=== PATIENT | female | born 1970 | race Caucasian/White ===

== ENCOUNTER 2020-09-23 04:26 | Day surgery (SDC) | payer OTHER ==
[2020-09-19 17:07] VITALS: BMI 31.7
[2020-09-23] MEDS ORDERED: ONDANSETRON 4 MG/2 ML VIAL IVPUSH PRN ×2 (07:03→07:47)
[2020-09-23] MEDS ORDERED: oxyCODONE HCL 5 MG TABLET PO PRN ×2 (07:03→07:47)
[2020-09-23] MEDS ORDERED: LACTATED RINGERS SOLUTION 1,000 ML IV SCH (07:15)
[2020-09-23] MEDS ORDERED: fentaNYL CITRATE 250 MCG/5 ML VIAL ONE (07:15)
[2020-09-23] MEDS ORDERED: MIDAZOLAM HCL 2 MG/2 ML SINGLE DOSE VIAL ONE (07:16)
[2020-09-23] MEDS ORDERED: PROPOFOL 20 ML ONE (07:16)
[2020-09-23] MEDS ORDERED: IBUPROFEN 600 MG TABLET (FP) PO PRN (07:47)
[2020-09-23] MEDS ORDERED: IBUPROFEN 800 MG/8 ML IJ IVPB PRN (07:47)
[2020-09-23] MEDS ORDERED: ELECTROLYTE-148 SOLN 1,000 ML IV SCH (08:00)
[2020-09-23 10:56] VITALS: BP 111/67; PULSE 70; TEMP 97.2
== END 2020-09-23 11:00 | disposition home or self-care (01) ==
LOC: JASU-SURG 04:26
PROVIDERS: ATTEND Obstetrics & Gynecology
PROC: 0UJD8ZZ Inspection of Uterus and Cervix, Via Natural or Artificial Opening Endoscopic (ICD-10-PCS; 2020-09-23)
PROC: 0UB98ZZ Excision of Uterus, Via Natural or Artificial Opening Endoscopic (ICD-10-PCS; principal; 2020-09-23 07:30)
PROC: 0UDB7ZX Extraction of Endometrium, Via Natural or Artificial Opening, Diagnostic (ICD-10-PCS; 2020-09-23 07:30)
DX: N92.1 Excessive and frequent menstruation with irregular cycle (principal); D25.0 Submucous leiomyoma of uterus
CPT/HCPCS: 71046-TC-FY; 81025; 88305-TC; 94760